=== PATIENT | female | born 1985 | race Caucasian/White ===

== ENCOUNTER 2016-10-20 14:16 | Emergency (ER) | payer OTHER ==
[2016-10-20 14:20] VITALS: BP 115/68; PULSE 80; TEMP 97.9; BMI 22.3
--- NOTE | 2016-10-20 17:08 | PDOC ---
History of Present Illness - General Chief Complaint: Cold Symptoms Stated Complaint: HEAD ACHE/COLD SYMPTOMS Time Seen by Provider: 10/20/16 16:35 History Source: Patient Exam Limitations: No Limitations - History of Present Illness Initial Comments: 10/20/16 17:10 This is a 31-year-old woman with no significant past medical history presents to the emergency room today with cough for 3 weeks and also with a headache status post striking her head on wooden steps on October 15. She states that while walking IN groceries she tripped and fell face first into stairs. She denies loss of consciousness or dizziness. Also had a dry nonproductive cough for the past 3 weeks. She denies fevers, chills, nausea, vomiting, chest pain, abdominal pain. Timing/Duration: 1 week Past History - Past Medical History Allergies/Adverse Reactions: Allergies Allergy/AdvReac Type Severity Reaction Status Date / Time piperacillin sodium AdvReac Severe Hives Verified 10/20/16 14:20 [From Zosyn] tazobactam sodium AdvReac Severe Hives Verified 10/20/16 14:20 [From Zosyn] vancomycin AdvReac Severe Hives Verified 10/20/16 14:20 Home Medications: Ambulatory Orders Azithromycin [Zithromax 250mg Tablets -] 250 mg PO DAILY #4 tablet 10/20/16 Other medical history: denies - Psycho/Social/Smoking Cessation Hx Suicidal Ideation: No Smoking Status: No Smoking History: Never smoked Number of Cigarettes Smoked Daily: 0 Information on smoking cessation initiated: No Hx Alcohol Use: No Drug/Substance Use Hx: No Substance Use Type: None Review of Systems - Review of Systems Able to Perform ROS?: Yes Is the patient limited Fijian proficient: No Constitutional: No: Symptoms Reported HEENTM: No: Symptoms Reported Respiratory: Yes: See HPI Cardiac (ROS): No: Symptoms Reported ABD/GI: No: Symptoms Reported : No: Symptoms Reported Musculoskeletal: No: Symptoms Reported Integumentary: No: Symptoms Reported Neurological: Yes: See HPI Endocrine: No: Symptoms Reported Hematologic/Lymphatic: No: Symptoms Reported *Physical Exam - Vital Signs Last Vital Signs Temp Pulse Resp BP Pulse Ox 97.9 F 80 18 115/68 100 10/20/16 14:18 10/20/16 14:18 10/20/16 14:18 10/20/16 14:18 10/20/16 14:18 - Physical Exam General Appearance: Yes: Appropriately Dressed. No: Apparent Distress HEENT: positive: EOMI, SOCORRO, Normal ENT Inspection Neck: positive: Trachea midline, Supple Respiratory/Chest: positive: Lungs Clear, Normal Breath Sounds. negative: Chest Tender, Respiratory Distress, Accessory Muscle Use Cardiovascular: positive: Regular Rhythm, Regular Rate, S1, S2. negative: Edema , JVD, Murmur Gastrointestinal/Abdominal: positive: Normal Bowel Sounds, Soft. negative: Tender, Organomegaly Musculoskeletal: positive: Normal Inspection. negative: CVA Tenderness Extremity: positive: Normal Capillary Refill, Normal Inspection, Normal Range of Motion Integumentary: positive: Normal Color, Dry, Warm Neurologic: positive: inside sales representative II-XII NML intact, Fully Oriented, Alert, Normal Mood/ Affect, Normal Response, Motor Strength 06/16 Medical Decision Making - Medical Decision Making 10/20/16 17:10 A: This is a 31-year-old woman with no significant past medical history presents to the emergency room today with cough for 3 weeks and also with a headache status post striking her head on wooden steps on October 15. She states that while walking IN groceries she tripped and fell face first into stairs. She denies loss of consciousness or dizziness. Also had a dry nonproductive cough for the past 3 weeks. She denies fevers, chills, nausea, vomiting, chest pain, abdominal pain. lungs clear to auscultation bilaterally. No wheezes rhonchi or rales. No sensory muscle use.speaking in full sentences. Hematoma noted to the hairline at the middle of the forehead. Patient denies loss of consciousness when she struck her head but has been experiencing global headaches since sustaining injury to her head. pupils equal to light and accommodation. P: CXR Azithromycin 500mg now 10/20/16 19:22 CXR as read by me- no acute pulmonary disease. 4 nodules noted. 1 unchanged from previous CXR. will discharge. Zithromax 250 daily x4 days. *DC/Admit/Observation/Transfer Diagnosis at time of Disposition: Bronchitis - Discharge Dispostion Admit: No - Prescriptions Prescriptions: Azithromycin [Zithromax 250mg Tablets -] 250 mg PO DAILY #4 tablet - Referrals Referrals: William Loza MD [Staff Physician] - - Patient Instructions Printed Discharge Instructions: DI for Acute Bronchitis Additional Instructions: You have a questionable finding on her chest x-ray that needs further evaluation. You've been given a referral to a new primary doctor please follow-up within the next 2 weeks. Take the azithromycin 1 pill every day for the next 4 days. Make sure you finish all of the azithromycin. Avoid alcohol. Keep well-hydrated. Enjoy your visit to [facility]. Return to the emergency department for fevers, chills, worsening cough, chest pain, shortness of breath, or any other concerns. Thank you for choosing us to provide your emergent health care needs today.
[2016-10-20] MEDS ORDERED: AZITHROMYCIN 500 MG TABLET PO ONE (17:46)
[2016-10-20] MEDS ORDERED: AZITHROMYCIN 250 MG TABLET ONE (17:57)
== END 2016-10-20 19:29 | disposition home or self-care (01) ==
LOC: JERFT 14:16
DX: J20.9 Acute bronchitis, unspecified (principal); G44.309 Post-traumatic headache, unspecified, not intractable; W10.8XXA Fall (on) (from) other stairs and steps, initial encounter; Y93.89 Activity, other specified; Y92.89 Other specified places as the place of occurrence of the external cause; Y99.8 Other external cause status
CPT/HCPCS: 71020-TC; 99281-25

== ENCOUNTER 2017-08-31 18:39 | Emergency (ER) | payer OTHER ==
[2017-08-31 19:52] VITALS: BP 117/71; PULSE 86; TEMP 100.2; BMI 22.3
--- NOTE | 2017-08-31 20:06 | PDOC ---
History of Present Illness - General Chief Complaint: Cold Symptoms Stated Complaint: COLD SYMPTOMS Time Seen by Provider: 08/31/17 19:46 History Source: Patient Exam Limitations: No Limitations - History of Present Illness Initial Comments: CHIEF COMPLAINT: 31 y/o febrile female c/o sore throat and body aches x 2 days. HISTORY OF PRESENT ILLNESS: THe patient has been taking nyquil and dayquil for her symptoms. She denies runny nose, vomiting, diarrhea, CP, SOB. Vital signs on arrival are notable for temp of 100.2 REVIEW OF SYSTEMS: GENERAL/CONSTITUTIONAL: + fever/chills. +body aches. No weakness. No weight change. HEAD, EYES, EARS, NOSE AND THROAT: No change in vision. No ear pain or discharge. +sore throat. CARDIOVASCULAR: No chest pain or shortness of breath. RESPIRATORY: No cough, wheezing, or hemoptysis. GASTROINTESTINAL: No abd pain, nausea, vomiting, diarrhea. GENITOURINARY: No dysuria, frequency, or change in urination. MUSCULOSKELETAL: No joint or muscle swelling or pain. No neck or back pain. SKIN: No rash or easy bruising. NEUROLOGIC: No headache, vertigo, loss of consciousness, or loss of sensation. PHYSICAL EXAM: GENERAL: The patient is awake, alert, and fully oriented, in no acute distress. SHe is non toxic but ill appearing. HEAD: Normal with no signs of trauma. NECK: Tender anterior cervical lymphadenopathy. ENT: Pupils equal, round and reactive to light, extraocular movements intact, sclera anicteric, conjunctiva clear. erythrmatous tonsils without exudate. Uvula midline. No soft/hard palate deformities. No petechia. LUNGS: Clear to auscultation bilaterally. Normal excursion. No respiratory distress or use of accessory muscles. CV: RRR, S1/S2, no MRG. Cap refill < 2 sec. ABDOMEN: Soft, non-distended, non-tender even to deep palpation, no hepatomegaly or splenomegaly, no masses. EXTREMITIES: Normal range of motion, no edema. NEUROLOGICAL: Normal speech, normal gait. CN II-XII grossly intact. SKIN: Warm, dry, normal turgor, no rashes or lesions noted. Past History - Past Medical History Allergies/Adverse Reactions: Allergies Allergy/AdvReac Type Severity Reaction Status Date / Time piperacillin sodium AdvReac Severe Hives Verified 10/20/16 14:20 [From Zosyn] tazobactam sodium AdvReac Severe Hives Verified 10/20/16 14:20 [From Zosyn] vancomycin AdvReac Severe Hives Verified 10/20/16 14:20 Home Medications: Ambulatory Orders Azithromycin [Zithromax 250mg Tablets -] 250 mg PO UTDICT #6 tab 08/31/17 COPD: No DVT: No Other medical history: Pneumonia - Surgical History Abdominal Surgery: No Appendectomy: No Cardiac Surgery: No Cholecystectomy: No Gastric Stapling: No GI Surgery: No - Suicide/Smoking/Psychosocial Hx Smoking Status: No Smoking History: Never smoked Number of Cigarettes Smoked Daily: 0 Hx Alcohol Use: No Drug/Substance Use Hx: No Substance Use Type: None *Physical Exam - Vital Signs Last Vital Signs Temp Pulse Resp BP Pulse Ox 100.2 F H 86 20 117/71 100 08/31/17 19:47 08/31/17 19:47 08/31/17 19:47 08/31/17 19:47 08/31/17 19:47 Medical Decision Making - Medical Decision Making A/P: 31 y/o female with possible strep. Plan is as follows: 1. PO tylenol 2. Rapid strep Rapid strep - positive Temp has decreased to 98.5 Patient wanted xray to r/o PNA although Lungs LTAB and 100% O2 sat. However, she decided she doesn't want to wait for xray will d/c to home with rx for zpack. Instructed her to take tylenol for fever, gargle with warm salt water andf /u wtih PCP within 1 week. INstructed her to return to the ER With any worsening or concerning symptoms The patient verbalizes understanding of all instructions, has no further questions and is awaiting discharge. *DC/Admit/Observation/Transfer Diagnosis at time of Disposition: Strep pharyngitis - Discharge Dispostion Disposition: HOME Condition at time of disposition: Good - Prescriptions Prescriptions: Azithromycin [Zithromax 250mg Tablets -] 250 mg PO UTDICT #6 tab - Referrals Referrals: William Loza MD [Primary Care Provider] - - Patient Instructions Printed Discharge Instructions: DI for Strep Throat Additional Instructions: Discharge Instructions: -You have strep throat -A prescription has been sent to your pharmacy; please take as prescribed -Gargle with warm salt water and drink plenty of fluids -Take 650mg of tylenol every 4 hours for fever. You will still get fevers for a few days -Get a new toothbrush after 3 days of antibiotics -Follow up with your doctor next week -REturn to the ER with any worsening or concerning symptoms - Post Discharge Activity Forms/Work/School Notes: Back to Work
[2017-08-31] MEDS ORDERED: ACETAMINOPHEN 325 MG TABLET (FP) PO ONE (20:17)
[2017-08-31] MEDS ORDERED: ACETAMINOPHEN 325 MG TABLET (FP) ONE (20:25)
== END 2017-08-31 23:03 | disposition home or self-care (01) ==
LOC: JERFT 18:39
DX: J02.0 Streptococcal pharyngitis (principal); B95.0 Streptococcus, group A, as the cause of diseases classified elsewhere
CPT/HCPCS: 84703; 87070; 87430; 99281-25

== ENCOUNTER 2018-04-08 07:40 | Emergency (ER) | payer OTHER ==
[2018-04-08 07:46] VITALS: BP 115/67; PULSE 76; TEMP 98.4; BMI 21.9
--- NOTE | 2018-04-08 08:18 | PDOC ---
History of Present Illness - General Chief Complaint: Cold Symptoms Stated Complaint: FEVER/CHILLS/HEADACHE Time Seen by Provider: 04/08/18 08:16 History Source: Patient Exam Limitations: No Limitations - History of Present Illness Initial Comments: 04/08/18 08:26 Onset of runny nose and cough on Sunday and woke up Sunday morning with fever , chills, body aches. Has been using [id number] medications with minimal relief Timing/Duration: reports: getting worse Severity: reports: moderate Associated Symptoms: reports: denies symptoms, chest pain/soreness, cough, earache, fever/chills, nasal congestion, nasal drainage, sore throat Past History - Past Medical History Allergies/Adverse Reactions: Allergies Allergy/AdvReac Type Severity Reaction Status Date / Time piperacillin sodium AdvReac Severe Hives Verified 10/20/16 14:20 [From Zosyn] tazobactam sodium AdvReac Severe Hives Verified 10/20/16 14:20 [From Zosyn] vancomycin AdvReac Severe Hives Verified 10/20/16 14:20 Home Medications: Ambulatory Orders Oseltamivir Phosphate [Tamiflu -] 75 mg PO BID #10 capsule 04/08/18 COPD: No DVT: No - Surgical History Abdominal Surgery: No Appendectomy: No Cardiac Surgery: No Cholecystectomy: No Gastric Stapling: No GI Surgery: No - Immunization History Immunization Up to Date: No - Suicide/Smoking/Psychosocial Hx Smoking Status: No Smoking History: Never smoked Have you smoked in the past 12 months: No Number of Cigarettes Smoked Daily: 0 Information on smoking cessation initiated: No Hx Alcohol Use: No Drug/Substance Use Hx: No Substance Use Type: None Review of Systems - Review of Systems Able to Perform ROS?: Yes Is the patient limited Faroese proficient: Yes Constitutional: Yes: Symptoms Reported, See HPI, Fever, Malaise HEENTM: Yes: Symptoms Reported Respiratory: Yes: Symptoms reported, See HPI, Cough Integumentary: Yes: Symptoms Reported, See HPI Neurological: Yes: Symptoms reported, See HPI, Headache, Numbness All Other Systems: Reviewed and Negative *Physical Exam - Vital Signs Last Vital Signs Temp Pulse Resp BP Pulse Ox 98.4 F 76 18 115/67 99 04/08/18 07:44 04/08/18 07:44 04/08/18 07:44 04/08/18 07:44 04/08/18 07:44 - Physical Exam Comments: 04/08/18 08:28 GENERAL: [ The pateint is awake, alert, and appropriately interactive.] EYES: [The pupils are equal, round, and reactive to light, with clear, conjunctiva.but glassy] NOSE: [The nose with clear drainage EARS: [The ear canals and tympanic membranes are congested but landmarks easily visualed ] THROAT: [The oropharynx is clear with erythema, no exudates. The mucous membranes are moist.] NECK: [The neck is supple with mildly tender adenopathy, no menigemous] CHEST: [The lungs are coarse but clear without crackles, or wheezes.] HEART: [Heart is regular rhythm, with normal S1 and S2, no murmurs.] ABDOMEN: [The abdomen is soft and nontender with normal bowel sounds. There is no organomegaly and no mass. There is no guarding or rebound.] EXTREMITIES: [Extremities are normal.] NEURO: [Behavior is normal for age.cranky but easily, Tone is normal.] SKIN: [Skin is unremarkable without rash or swelling. There is no bruising, and there are no other signs of injury.] General Appearance: Yes: Appropriately Dressed Moderate Sedation - Procedure Monitoring Vital Signs: Procedure Monitoring Vital Signs Temperature 98.4 F 04/08/18 07:44 Pulse Rate 76 04/08/18 07:44 Respiratory Rate 18 04/08/18 07:44 Blood Pressure 115/67 04/08/18 07:44 O2 Sat by Pulse Oximetry (%) 99 04/08/18 07:44 Progress Note - Progress Note Progress Note: Clinical evidence of influenza therefore will treat as within timeframe *DC/Admit/Observation/Transfer Diagnosis at time of Disposition: Influenzal acute upper respiratory infection - Discharge Dispostion Disposition: HOME Condition at time of disposition: Stable Decision to Admit order: No - Referrals Referrals: William Loza MD [Primary Care Provider] - - Patient Instructions Printed Discharge Instructions: DI for Viral Upper Respiratory Infection -- Adult Additional Instructions: Rest, drink lots of fluids: Teas, water, soups, Pedialyte Saltwater gargles Steamy showers/seem to face break up mucus Old-fashioned treatments help! Avoid contact with others until fevers and cough resolved as this is very contagious Lots of handwashing and good hygiene Continue [id number] medications for symptomatic relief Tylenol or Motrin for fever and pain Take all of Tamiflu as directed: 1 tab every 12 hours for 5 days Followup with private physician in one to 2 days as needed or if worsening Return to emergency department for worsened symptoms, fevers, dehydration Influenza takes between 5 and 7 days for resolution To not participate in any activity, work, or school until fevers and cough are gone for at least one day - Post Discharge Activity Forms/Work/School Notes: Back to Work
== END 2018-04-08 08:47 | disposition home or self-care (01) ==
LOC: JERFT 07:40
DX: J11.1 Influenza due to unidentified influenza virus with other respiratory manifestations (principal)
CPT/HCPCS: 99281-25

== ENCOUNTER 2018-08-04 17:02 | Emergency (ER) | payer OTHER ==
[2018-08-04 17:11] VITALS: BP 108/64; PULSE 70; TEMP 98.7; BMI 21.4
--- NOTE | 2018-08-04 17:24 | PDOC ---
History of Present Illness - General Chief Complaint: Sore Throat Stated Complaint: THROAT PROBLEM Time Seen by Provider: 08/04/18 17:13 History Source: Patient Exam Limitations: No Limitations - History of Present Illness Initial Comments: 08/04/18 17:26 patient states has had a runny nose, posterior sinus drainage, and some mild sore throat pain on and off for the past week. Denies fevers or chills, has not taken temperature. His ocoekcfo-hcr-iycnvls and homeopathic treatments with minimal resolved. Timing/Duration: unsure Severity: mild Associated Symptoms: reports: denies symptoms Past History - Travel Traveled outside of the country in the last 30 days: No Close contact w/someone who was outside of country & ill: No - Past Medical History Allergies/Adverse Reactions: Allergies Allergy/AdvReac Type Severity Reaction Status Date / Time piperacillin sodium AdvReac Severe Hives Verified 08/04/18 17:11 [From Zosyn] tazobactam sodium AdvReac Severe Hives Verified 08/04/18 17:11 [From Zosyn] vancomycin AdvReac Severe Hives Verified 08/04/18 17:11 Home Medications: Ambulatory Orders Azithromycin [Zithromax -] 250 mg PO UTDICT #6 tab 08/04/18 Benzonatate [Tessalon Pearls -] 100 mg PO TID #21 capsule 08/04/18 COPD: No DVT: No - Surgical History Abdominal Surgery: No Appendectomy: No Cardiac Surgery: No Cholecystectomy: No Gastric Stapling: No GI Surgery: No - Immunization History Immunization Up to Date: No - Suicide/Smoking/Psychosocial Hx Smoking Status: No Smoking History: Never smoked Have you smoked in the past 12 months: No Number of Cigarettes Smoked Daily: 0 Hx Alcohol Use: No Drug/Substance Use Hx: No Substance Use Type: None Review of Systems - Review of Systems Able to Perform ROS?: Yes Is the patient limited Gambian proficient: Yes Constitutional: Yes: Symptoms Reported, See HPI, Chills, Loss of Appetite, Malaise HEENTM: Yes: Nose Pain, Nose Congestion, Throat Pain, Throat Swelling Respiratory: Yes: Symptoms reported, See HPI. No: Cough Cardiac (ROS): No: Symptoms Reported ABD/GI: No: Symptoms Reported Neurological: Yes: See HPI, Headache. No: Symptoms reported All Other Systems: Reviewed and Negative *Physical Exam - Vital Signs Last Vital Signs Temp Pulse Resp BP Pulse Ox 98.7 F 70 18 108/64 100 08/04/18 17:08 08/04/18 17:08 08/04/18 17:08 08/04/18 17:08 08/04/18 17:08 - Physical Exam General Appearance: Yes: Nourished, Appropriately Dressed HEENT: positive: SOCORRO, TMs Normal (congested but landmarks easily visualized), Pharynx Normal (no redness, swelling or exudate however noted posterior sinus drainage thick clear white), Rhinorrhea, Sinus Tenderness Neck: positive: Tender, Supple, Lymphadenopathy (R), Lymphadenopathy (L) Respiratory/Chest: positive: Lungs Clear, Normal Breath Sounds. 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 Discussed with patient need to continue chch-uko-odknixl medications and conservative measures as antibiotics would not be indicated and provided prescription for Tessalon Perles when necessary for persistent cough. Also given a watch and wait azithromycin as patient has been ill for over a week on and off and has multiple exposures to people with bronchitis and some strep with coworkers. Understands will not initiate unless fevers go greater than 101.5, phlegm production, or worsen nasal drainage. *DC/Admit/Observation/Transfer Diagnosis at time of Disposition: Laryngitis - Discharge Dispostion Disposition: HOME Condition at time of disposition: Stable Decision to Admit order: No - Referrals - Patient Instructions Printed Discharge Instructions: DI for Laryngitis Additional Instructions: Rest, drink lots of fluids: Teas, water, soups, Pedialyte Saltwater gargles Steamy showers/seem to face break up mucus Avoid contact with others until fevers and cough resolved Lots of handwashing and good hygiene Continue [id number] medications for symptomatic relief Tylenol or Motrin for fever and pain Followup with private physician in one to 2 days as needed Return to emergency department for worsened symptoms, fevers, dehydration - Post Discharge Activity Forms/Work/School Notes: Back to Work
== END 2018-08-04 17:32 | disposition home or self-care (01) ==
LOC: JERFT 17:02
DX: J06.9 Acute upper respiratory infection, unspecified (principal); J04.0 Acute laryngitis
CPT/HCPCS: 99282-25

== ENCOUNTER 2018-12-03 22:00 | Emergency (ER) | payer OTHER ==
[2018-12-03 22:27] VITALS: BP 124/78; PULSE 76; TEMP 98.2; BMI 21.4
== END 2018-12-03 23:24 | disposition left against medical advice (07) ==
LOC: JER 22:00
DX: Z53.21 Procedure and treatment not carried out due to patient leaving prior to being seen by health care provider (principal)
CPT/HCPCS: 99281-25

== ENCOUNTER 2019-04-15 14:45 | Emergency (ER) | payer OTHER ==
[2019-04-15] MEDS ORDERED: MAG HYDROX/AL HYDROX/SIMETH 30 ML UNIT-DOSE CUP PO ONE (14:50)
[2019-04-15] MEDS ORDERED: ONDANSETRON *ODT* 4 MG TABLET SL ONE ×2 (14:50→16:14)
[2019-04-15] MEDS ORDERED: FAMOTIDINE 20 MG TABLET PO ONE (14:50)
--- NOTE | 2019-04-15 14:50 | PDOC ---
Rapid Medical Evaluation Time Seen by Provider: 04/15/19 14:48 Medical Evaluation: Allergies Allergy/AdvReac Type Severity Reaction Status Date / Time piperacillin sodium AdvReac Severe Hives Verified 12/03/18 22:27 [From Zosyn] tazobactam sodium AdvReac Severe Hives Verified 12/03/18 22:27 [From Zosyn] vancomycin AdvReac Severe Hives Verified 12/03/18 22:27 04/15/19 14:48 CC: Nausea, anorexia and "acid reflux" PE: No focal findings. Orders: maalox, pepcid, zofran, UPT Patient will proceed to ED for further evaluation. Discharge Disposition - Diagnosis Nausea - Referrals - Patient Instructions - Post Discharge Activity
[2019-04-15 14:51] VITALS: BP 119/85; PULSE 76; TEMP 98.2; BMI 21.9
[2019-04-15] MEDS ORDERED: FAMOTIDINE 20 MG TABLET ONE (15:15)
[2019-04-15] MEDS ORDERED: MAG HYDROX/AL HYDROX/SIMETH 30 ML UNIT-DOSE CUP ONE (15:15)
[2019-04-15] MEDS ORDERED: ONDANSETRON *ODT* 4 MG TABLET ONE ×2 (15:15→16:15)
[2019-04-15 15:43] LABS: EPI CELLS 2.5 /HPF (0-5/HPF); HYALINE CASTS 4 /lpf (0-8); URINE APPEARANCE CLEAR; URINE BACTERIA 113.4 /hpf (NEGATIVE); URINE BILIRUBIN NEGATIVE (NEGATIVE); URINE COLOR YELLOW; URINE GLUCOSE (UA) NEGATIVE (NEGATIVE); URINE KETONE TRACE (NEGATIVE); URINE LEUK ESTERASE NEGATIVE (NEGATIVE); URINE NITRITE NEGATIVE (NEGATIVE); URINE PROTEIN NEGATIVE (NEGATIVE); URINE RBC 5 /hpf (0-4); URINE UROBILINOGEN 0.2 mg/dL (0.2-1.0); URINE WBC 2 /hpf (0-5)
--- NOTE | 2019-04-15 16:10 | PDOC ---
History of Present Illness - General Chief Complaint: Nausea Stated Complaint: HEADACHE/NAUSEA Time Seen by Provider: 04/15/19 14:48 - History of Present Illness Initial Comments: 04/15/19 16:08 33-year-old female presents for evaluation of nausea x1 day Past History - Past Medical History Allergies/Adverse Reactions: Allergies Allergy/AdvReac Type Severity Reaction Status Date / Time piperacillin sodium AdvReac Severe Hives Verified 04/15/19 14:51 [From Zosyn] tazobactam sodium AdvReac Severe Hives Verified 04/15/19 14:51 [From Zosyn] vancomycin AdvReac Severe Hives Verified 04/15/19 14:51 Home Medications: Ambulatory Orders Azithromycin [Zithromax -] 250 mg PO UTDICT #6 tab 08/04/18 Benzonatate [Tessalon Pearls -] 100 mg PO TID #21 capsule 08/04/18 Ondansetron [Zofran *Odt*] 4 mg SL BID #14 od.tablet 04/15/19 COPD: No DVT: No - Surgical History Abdominal Surgery: No Appendectomy: No Cardiac Surgery: No Cholecystectomy: No Gastric Stapling: No GI Surgery: No - Immunization History Immunization Up to Date: No - Psycho Social/Smoking Cessation Hx Smoking Status: No Smoking History: Never smoked Have you smoked in the past 12 months: No Number of Cigarettes Smoked Daily: 0 Hx Alcohol Use: No Drug/Substance Use Hx: No Substance Use Type: None Review of Systems - Review of Systems Constitutional: No: Fever ABD/GI: Yes: Nausea. No: Blood Streaked Bowels, Constipated, Diarrhea, Vomiting *Physical Exam - Vital Signs Last Vital Signs Temp Pulse Resp BP Pulse Ox 98.2 F 76 18 119/85 99 04/15/19 14:47 04/15/19 14:47 04/15/19 14:47 04/15/19 14:47 04/15/19 14:47 - Physical Exam 04/15/19 16:09 GENERAL: The patient is awake, alert, and fully oriented, in no acute distress. HEAD: Normal with no signs of trauma. EYES: sclera anicteric, conjunctiva clear. ENT: Ears normal tympanic membranes normal oropharynx clear uvula midline NECK: Normal range of motion LUNGS: Breath sounds equal, clear to auscultation bilaterally. No wheezes, and no crackles. HEART: S1 and S2 without murmur, rub or gallop. ABDOMEN: Soft, nontender, normoactive bowel sounds. No guarding, no rebound. No masses. EXTREMITIES: Normal range of motion, no edema. No clubbing or cyanosis. No cords, erythema, or tenderness. NEUROLOGICAL: Cranial nerves II through XII grossly intact. PSYCH: Normal mood, normal affect. SKIN: Warm, Dry, normal turgor, no rashes or lesions noted. ED Treatment Course - ADDITIONAL ORDERS Additional order review: Laboratory Results 04/15/19 04/15/19 15:00 15:00 Urine Color Yellow Urine Appearance Clear Urine pH 6.0 Ur Specific [place] 1.024 Urine Protein Negative Urine Glucose (UA) Negative Urine Ketones Trace H Urine Blood 2+ H Urine Nitrite Negative Urine Bilirubin Negative Urine Urobilinogen 0.2 Ur Leukocyte Esterase Negative Urine WBC (Auto) 2 Urine RBC (Auto) 5 Urine Casts (Auto) 4 U Epithel Cells (Auto) 2.5 Urine Bacteria (Auto) 113.4 Urine HCG, Qual Negative - Medications Given in the ED: ED Medications Discontinued Medications Generic Name Dose Route Start Last Admin Trade Name Freq PRN Reason Stop Dose Admin Al Hydroxide/Mg Hydroxide 30 ml 04/15/19 14:50 04/15/19 15:17 Mylanta Oral Suspension - PO 04/15/19 14:51 30 ml ONCE ONE Administration Famotidine 20 mg 04/15/19 14:50 04/15/19 15:17 Pepcid - PO 04/15/19 14:51 20 mg ONCE ONE Administration Ondansetron HCl 4 mg 04/15/19 14:50 04/15/19 15:18 Zofran Odt - SL 04/15/19 14:51 4 mg ONCE ONE Administration Medical Decision Making - Medical Decision Making 04/15/19 16:09 May be the start of a viral gastroenteritis. Urine questionable for UTI, culture sent. Patient is menstruating at this time, will treat for nausea with Zofran and PCP follow-up I have reviewed the pathophysiology with the patient. They are in agreement with the treatment plan all questions were answered to their satisfaction. Understanding for follow-up without fail was also conveyed to the patient. Again they are in agreement. Discharge - Discharge Information Problems reviewed: Yes Clinical Impression/Diagnosis: Nausea Condition: Stable Disposition: HOME - Admission No - Follow up/Referral Referrals: William Loza MD [Primary Care Provider] - - Patient Discharge Instructions Additional Instructions: Return to the emergency room for worsening symptoms and without fail follow-up with your primary care physician in 1 to 2 days for further evaluation and treatment options. Please use the Zofran as directed for nausea. - Post Discharge Activity
== END 2019-04-15 16:18 | disposition home or self-care (01) ==
LOC: JERFT 14:45
DX: R11.0 Nausea (principal); Z88.0 Allergy status to penicillin; Z88.1 Allergy status to other antibiotic agents
CPT/HCPCS: 81003; 84703; 99283-25; Q0162

== ENCOUNTER 2019-04-20 10:51 | Emergency (ER) | payer OTHER ==
[2019-04-20 10:55] VITALS: BMI 21.9
--- NOTE | 2019-04-20 11:15 | PDOC ---
History of Present Illness - General Chief Complaint: Nausea Stated Complaint: HEADACHE/NAUSEOUS Time Seen by Provider: 04/20/19 11:15 History Source: Patient Exam Limitations: No Limitations - History of Present Illness Initial Comments: 04/20/19 11:15 Kassie Baires is an otherwise healthy 33F presenting with 5 days of nausea, CHAU, and lower abdominal/pelvic discomfort. Patient was at home resting when she started having nausea and CHAU. CHAU intermittent and lasts ~20 mins, denies vision changes or head injury, takes Motrin and CHAU pain decreases. Intermittent dizziness. Nausea persistent independent of CHAU. Presented to [facility] ED for evaluation 4 days ago for this nausea in the setting of her menses, negative, sent home with SL Chau. Two days ago having discomfort in her lower abdomen, mostly in the left side of her pelvis, still having the nausea and anorexia without any vomiting or diarrhea. Not tolerating the Zofran, says she had to spit it out after a few seconds. Presents to ED today because she cannot stand being nauseated any more and is worried about what is wrong with her. Denies fever, chills, chest pain, SOB. Denies urinary symptoms. 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 Last sexual activity with one male partner 2 weeks ago, no condoms used, no contraception used by patient, no history of any STIs. Denies any other PMH or medications. Denies tobacco/drugs/alcohol use. Past History - Past Medical History Allergies/Adverse Reactions: Allergies Allergy/AdvReac Type Severity Reaction Status Date / Time piperacillin sodium AdvReac Severe Hives Verified 04/20/19 10:55 [From Zosyn] tazobactam sodium AdvReac Severe Hives Verified 04/20/19 10:55 [From Zosyn] vancomycin AdvReac Severe Hives Verified 04/20/19 10:55 metoclopramide [From Reglan] AdvReac Intermediate dystonic Verified 04/20/19 14:12 reaction Home Medications: Ambulatory Orders Doxycycline Hyclate 100 mg PO BID 10 Days #20 tablet 04/20/19 COPD: No DVT: No - Surgical History Abdominal Surgery: No Appendectomy: No Cardiac Surgery: No Cholecystectomy: No Gastric Stapling: No GI Surgery: No - Immunization History Immunization Up to Date: No - Psycho Social/Smoking Cessation Hx Smoking Status: No Smoking History: Never smoked Have you smoked in the past 12 months: No Number of Cigarettes Smoked Daily: 0 Hx Alcohol Use: No Drug/Substance Use Hx: No Substance Use Type: None Review of Systems - Review of Systems Able to Perform ROS?: Yes Constitutional: No: Chills, Fever HEENTM: No: Eye Pain, Blurred Vision, Nose Pain, Throat Pain, Mouth Swelling Respiratory: No: Cough, Shortness of Breath, Stridor, Wheezing Cardiac (ROS): Yes: Lightheadedness. No: Chest Pain, Edema, Irregular Heart Rate, Palpitations, Syncope, Chest Tightness ABD/GI: Yes: Constipated, Nausea, Poor Appetite, Poor Fluid Intake, Abdominal cramping. No: Diarrhea, Vomiting : No: Burning, Dysuria, Discharge, Frequency, Flank Pain, Hematuria, Incontinence Musculoskeletal: No: Symptoms Reported Integumentary: No: Symptoms Reported Neurological: Yes: Headache, Dizziness. No: Numbness, Paresthesia, Tingling, Unsteady Gait Endocrine: No: Symptoms Reported Hematologic/Lymphatic: No: Symptoms Reported All Other Systems: Reviewed and Negative *Physical Exam - Vital Signs Last Vital Signs Temp Pulse Resp BP Pulse Ox 98.2 F 80 18 119/71 100 04/20/19 10:53 04/20/19 10:53 04/20/19 10:53 04/20/19 10:53 04/20/19 10:53 - Physical Exam General Appearance: Yes: Nourished, Appropriately Dressed. No: Apparent Distress HEENT: positive: EOMI, [place], Normal Voice, Symmetrical, Pharynx Normal, Hearing Grossly Normal. negative: Scleral Icterus (R), Scleral Icterus (L), Pharyngeal Erythema, Tonsillar Exudate, Tonsillar Erythema Neck: positive: Trachea midline, Normal Thyroid, Supple. negative: Tender, Rigid, Lymphadenopathy (R), Lymphadenopathy (L), Tender lateral, Tender midline Respiratory/Chest: positive: Lungs Clear, Normal Breath Sounds. negative: Chest Tender, Respiratory Distress, Accessory Muscle Use, Crackles, Rales, Rhonchi, Wheezing Cardiovascular: positive: Regular Rhythm, Regular Rate. negative: Tachycardia Gastrointestinal/Abdominal: positive: Normal Bowel Sounds, Tender (L>R lower abdomen), Flat, Soft. negative: Organomegaly, Pulsatile Mass, Guarding, Rebound, Hernia Musculoskeletal: positive: Normal Inspection. negative: CVA Tenderness, Decreased Range of Motion, Vertebral Tenderness Extremity: positive: Normal Capillary Refill, Normal Inspection, Normal Range of Motion. negative: Tender, Pelvis Stable, Pedal Edema, Swelling, Calf Tenderness Integumentary: positive: Normal Color, Dry, Warm Neurologic: positive: lead c developer II-XII NML intact, Fully Oriented, Alert, Normal Mood/Affect, Normal Response, Motor Strength 5/5, Other (gait normal). negative: Numbness ED Treatment Course - LABORATORY CBC & Chemistry Diagram: 04/20/19 12:20 04/20/19 12:20 Medical Decision Making - Medical Decision Making 04/20/19 12:34 Presents with CHAU, nausea without vomiting or diarrhea, poor appetite, and non- specific abdominal discomfort. VS stable, physical exam shows generalized abdominal pain with L>R lower tenderness, neuro exam grossly normal. Presentation concerning for multiple possible pathologies including /ectopic, oavarian torsion or cyst rupture, cervicitis, PID, appendicitis, UTI/pyelo. Will evaluate broadly for all of these pathologies with labs and urinalysis, will get US at first and may need CTAP for evaluate for appendicitis. - CMP/CBC for eval lytes/infection - lipase for eval pancreatitis - serum - UA/UC for eval UTI - TVUS for eval ovarian pathology - CTAP for evaluation of appendicitis - 1L NS, Ofirmev, and 10mg Reglan for symptomatic relief. Will perform pelvic exam for further clarification of adenexal pathology if present. 04/20/19 14:34 Patient found to have dystonic reaction to Reglan despite slow administration. In a panic, stated that she suddenly felt a dry mouth. Given 50mg Benadryl and recovered to normal. 04/20/19 16:08 TVUS normal. CTAP no appendicitis, evidence of heterogenous appearing liver, recommends liver MRI outpatient. Pelvic exam shows CMT and adnexal tenderness bilaterally, concerning for PID. Patient has Zosyn allergy with facial swelling and redness. Ordering 240mg IM gentamycin and 2g azithromycin for treatment. Otherwise stable for discharge home with GI f/u and PMD f/u tomorrow as scheduled. 04/20/19 16:55 Informed by pharmacy that IM gentamycin unavailable. Switching to 100mg doxycycline BID for 10 days. Scripts sent to pharmacy. Discharged. Discharge - Discharge Information Problems reviewed: Yes Clinical Impression/Diagnosis: Nausea Headache Qualifiers: Headache type: unspecified Headache chronicity pattern: acute headache Intractability: not intractable Qualified Code(s): R51 - Headache Abdominal pain Qualifiers: Abdominal location: generalized Qualified Code(s): R10.84 - Generalized abdomi nal pain Condition: Stable Disposition: HOME - Additional Discharge Information Prescriptions: Doxycycline Hyclate 100 mg PO BID 10 Days #20 tablet - Follow up/Referral Referrals: William Loza MD [Primary Care Provider] - Beverly Chicas MD [Staff Physician] - Dell Cobb MD [Staff Physician] - - Patient Discharge Instructions Additional Instructions: Today you were evaluated for nausea and abdominal pain. Your blood works are totally normal. Your ultrasound is also normal. Your CT scan shows that you are constipated, and also that you have some sort of issue with your liver. As we discussed, this is not something that needs treatment emergently, but you should follow-up with a specialist called a manager division for further care, and referrals have been given. Our radiologist recommends an MRI of your liver to evaluate it further. At home, drink lots of fluids and you can continue to take Motrin for your headaches. We have discovered a new adverse reaction to a medication called Reglan (metaclopramide), please do not take this in the future. Please follow-up with Dr. Loza tomorrow. If you experience worsening nausea, vomiting, fever, abdominal pain, or any other new or concerning symptoms, please return to the emergency room. - Post Discharge Activity Work/Back to School Note: Back to Work
[2019-04-20] MEDS ORDERED: SODIUM CHLORIDE 0.9% 500 ML INFUS.BAG IV ONE (11:56)
[2019-04-20] MEDS ORDERED: METOCLOPRAMIDE HCL INJECTION 10 MG/2 ML VIAL IVPB ONE (11:56)
[2019-04-20] MEDS ORDERED: ACETAMINOPHEN 1000 MG/100 ML VIAL (NON FORMULARY) IVPB ONE (11:56)
[2019-04-20] MEDS ORDERED: ACETAMINOPHEN INJECTION 100 ML IVPB ONE (12:18)
[2019-04-20] MEDS ORDERED: METOCLOPRAMIDE HCL INJECTION 10 MG/2 ML VIAL ONE (12:18)
--- NOTE | 2019-04-20 12:34 | PDOC ---
Attending Attestation - Resident Resident Name: Ky Friedman - ED Attending Attestation I have performed the following: I have examined & evaluated the patient, The case was reviewed & discussed with the resident, I agree w/resident's findings & plan - HPI HPI: 04/20/19 12:29 Healthy 33-year-old female with no significant past medical or surgical history presents for persistent nausea with intermittent pelvic/abdominal cramping. Patient was initially seen here 4 days ago for nausea while menstruating, urinalysis and urine were negative and she was discharged home. 2 days ago, began developing some vibratory sensation in her left pelvis without much pain, but with persistent nausea and anorexia without vomiting or diarrhea, slight constipation for 2 days now. No associated urinary complaints, otherwise normal menses, no vaginal discharge or odor. Presents today secondary to persistent/worsening nausea and ongoing pelvic discomfort. Sexually active with one partner, does not use condoms. No history of ovarian cysts or uterine fibroids, no history of STI. - Physicial Exam PE: 04/20/19 12:32 Vital signs stable, afebrile, urine pending Well-appearing seated comfortably in stretcher No jaundice or pallor, dry mucosa Heart is regular, lungs are clear Abdomen is soft/nondistended. Pelvic/suprapubic discomfort to palpation possibly worse in the left pelvis, no guarding or rebound, no CVA tenderness Pelvic per resident - Medical Decision Making 04/20/19 12:32 33-year-old female with persistent nausea for several days and intermittent, vague pelvic complaints following menses. Question RN AMBULATORY versus versus GI etiology, no peritoneal findings on examination. Question UTI versus RN AMBULATORY (cyst versus PID, rule out ), rule out GI etiology such as colitis or enteritis. Labs, urinalysis IV fluids, pain control, nausea control Transvaginal ultrasound, may require CT if ultrasound and work-up show no etiology Reassess 04/20/19 15:32 labs, ua, tvus normal ctap with abnormal heterogeneity of liver, LFTs normal. No RUQ ttp, though nausea could be explained by this finding. no meds/travel/intox to suggest liver disease, no known history. pelvic and cultures, empiric tx for PID, GI referral for recommended outpt MRI. pt updated, understands return criteria
[2019-04-20 12:46] LABS: BASO % 0.5 % (0-2.0); EOS % 0.9 % (0-4.5); HEMATOCRIT 34.6 % (32.4-45.2); HEMOGLOBIN 11.7 GM/dL (10.7-15.3); LYMPH % 25.6 % (8-40); MCHC 33.7 g/dl (32.0-36.0); MEAN PLT VOLUME 7.6 fl (7.5-11.1); PLATELET COUNT 257 K/MM3 (134-434); RDW 13.9 % (11.6-15.6); WHITE BLOOD COUNT 6.7 K/mm3 (4.0-10.0)
[2019-04-20 13:04] LABS: BILIRUBIN,TOTAL 0.4 mg/dL (0.2-1); CALCIUM 8.8 mg/dL (8.5-10.1); CREATININE 0.9 mg/dL (0.55-1.3); INR 1.06 (0.83-1.09); POTASSIUM 3.9 mmol/L (3.5-5.1); PROTHROMBIN TIME (PATIENT) 12.5 SEC (9.7-13.0); TOT PROT 7.2 g/dl (6.4-8.2)
[2019-04-20 13:07] LABS: ACTIVATED PTT 33.6 SECONDS (25.2-36.5)
[2019-04-20 13:09] LABS: PH,URINE 6.5 (5.0-8.0); URINE APPEARANCE CLEAR; URINE BILIRUBIN NEGATIVE (NEGATIVE); URINE COLOR YELLOW; URINE GLUCOSE (UA) NEGATIVE (NEGATIVE); URINE KETONE NEGATIVE (NEGATIVE); URINE LEUK ESTERASE NEGATIVE (NEGATIVE); URINE NITRITE NEGATIVE (NEGATIVE); URINE PROTEIN NEGATIVE (NEGATIVE); URINE UROBILINOGEN 0.2 mg/dL (0.2-1.0)
[2019-04-20] MEDS ORDERED: MAGNESIUM CITRATE 300 ML BOTTLE PO ONE (15:46)
[2019-04-20] MEDS ORDERED: AZITHROMYCIN 500 MG TABLET PO ONE ×2 (16:04→16:07)
[2019-04-20] MEDS ORDERED: GENTAMICIN INJECTION 240 MG in DEXTROSE 5%-WATER - 250 ML IM SCH (16:15)
[2019-04-20] MEDS ORDERED: AZITHROMYCIN 250 MG TABLET ONE (16:25)
[2019-04-20] MEDS ORDERED: MAGNESIUM CITRATE 300 ML BOTTLE ONE (16:25)
[2019-04-20] MEDS ORDERED: DOXYCYCLINE HYCLATE 100 MG CAPSULE PO ONE (16:27)
[2019-04-20 16:55] VITALS: BP 124/78; PULSE 72; TEMP 98.6
== END 2019-04-20 16:21 | disposition home or self-care (01) ==
LOC: JER 10:51
PROC: 3E0337Z Introduction of Electrolytic and Water Balance Substance into Peripheral Vein, Percutaneous Approach (ICD-10-PCS; principal; 2019-04-20)
PROC: 3E033NZ Introduction of Analgesics, Hypnotics, Sedatives into Peripheral Vein, Percutaneous Approach (ICD-10-PCS; 2019-04-20)
PROC: 3E033GC Introduction of Other Therapeutic Substance into Peripheral Vein, Percutaneous Approach (ICD-10-PCS; 2019-04-20)
PROC: 3E033NZ Introduction of Analgesics, Hypnotics, Sedatives into Peripheral Vein, Percutaneous Approach (ICD-10-PCS; 2019-04-20)
PROC: 3E0337Z Introduction of Electrolytic and Water Balance Substance into Peripheral Vein, Percutaneous Approach (ICD-10-PCS; 2019-04-20)
DX: R11.0 Nausea (principal); R51 Headache; R10.84 Generalized abdominal pain; Z88.8 Allergy status to other drugs, medicaments and biological substances
CPT/HCPCS: 36415; 74177-TC; 76830-TC; 80053; 81003; 83690; 84703; 85025; 85610; 85730; 87086; 87491; 87591; 96374; 96375; 99285-25; J0131; Q9967

== ENCOUNTER 2019-04-24 14:09 | Emergency (ER) | payer OTHER ==
[2019-04-24 14:18] VITALS: BP 139/64; PULSE 69; TEMP 98.6; BMI 21.9
--- NOTE | 2019-04-24 14:22 | PDOC ---
Rapid Medical Evaluation Chief Complaint: Pain Time Seen by Provider: 04/24/19 14:13 Medical Evaluation: Allergies Allergy/AdvReac Type Severity Reaction Status Date / Time piperacillin sodium AdvReac Severe Hives Verified 04/24/19 14:17 [From Zosyn] tazobactam sodium AdvReac Severe Hives Verified 04/24/19 14:17 [From Zosyn] vancomycin AdvReac Severe Hives Verified 04/24/19 14:17 metoclopramide [From Reglan] AdvReac Intermediate dystonic Verified 04/24/19 14:17 reaction Vital Signs Temp Pulse Resp BP Pulse Ox 98.6 F 69 19 139/64 100 04/24/19 14:13 04/24/19 14:13 04/24/19 14:13 04/24/19 14:13 04/24/19 14:13 04/24/19 14:18 Pt c/o: left flank/llq pain x 10 days Pt on brief exam: llq tenderness pt ordered for: ua, labs pt to proceed to the ED Discharge Disposition - Diagnosis Abdominal pain - Referrals - Patient Instructions - Post Discharge Activity
[2019-04-24 15:41] LABS: BASO % 0.5 % (0-2.0); EOS % 0.6 % (0-4.5); HEMATOCRIT 35.5 % (32.4-45.2); HEMOGLOBIN 12.1 GM/dL (10.7-15.3); LYMPH % 25.3 % (8-40); MCH 30.1 pg (25.7-33.7); MEAN CELL VOLUME 88.7 fl (80-96); MEAN PLT VOLUME 7.5 fl (7.5-11.1); MONO % 9.3 % (3.8-10.2); NEUT % 64.3 % (42.8-82.8); PLATELET COUNT 285 K/MM3 (134-434); RBC 4.01 M/mm3 (3.60-5.2); RDW 13.8 % (11.6-15.6); WHITE BLOOD COUNT 8.1 K/mm3 (4.0-10.0)
[2019-04-24 15:54] LABS: PH,URINE 8.5 (5.0-8.0); URINE APPEARANCE CLEAR; URINE BILIRUBIN NEGATIVE (NEGATIVE); URINE COLOR YELLOW; URINE GLUCOSE (UA) NEGATIVE (NEGATIVE); URINE KETONE NEGATIVE (NEGATIVE); URINE LEUK ESTERASE NEGATIVE (NEGATIVE); URINE NITRITE NEGATIVE (NEGATIVE); URINE PROTEIN NEGATIVE (NEGATIVE); URINE UROBILINOGEN 0.2 mg/dL (0.2-1.0)
--- NOTE | 2019-04-24 15:55 | PDOC ---
History of Present Illness - General Chief Complaint: Pain Stated Complaint: BACK PAIN Time Seen by Provider: 04/24/19 14:13 History Source: Patient - History of Present Illness Initial Comments: 04/24/19 20:03 Chief complaint: Back pain and left flank pain Patient 33-year-old female with no specific medical problems who came to the ER multiple times this month with complaints of abdominal pain. She had labs, ultrasound of the pelvis, CT scan without any acute findings. Patient was never looking for pain medicine. She states that she is on an antibiotic and a stomach medicine, she does not remember the names but they are not working and she stopped taking them but that is not why she is here today. She has an appoint with a open hearth worker on Sunday. She was supposed to go for an outpatient ultrasound of the abdomen tomorrow but came here because she is having this left back and flank pain. No fever, no vomiting. Does have some nausea but feels that is more related to her stomach problem. Patient is ambulatory. GENERAL/CONSTITUTIONAL: No fever, weakness. dizziness HEAD, EYES, EARS, NOSE AND THROAT: No change in vision. No ear pain or discharge. No sore throat. CARDIOVASCULAR: No chest pain RESPIRATORY: No shortness of breath or cough GASTROINTESTINAL: No pain, nausea, vomiting, diarrhea or constipation GENITOURINARY: No dysuria MUSCULOSKELETAL: No neck, +back pain SKIN: No rash NEUROLOGIC: No headache, vertigo, loss of consciousness, or loss of sensation. GENERAL: The patient is awake, alert, and fully oriented, in no acute distress. HEAD: Normal with no signs of trauma. EYES: Pupils equal, round and reactive to light, sclera anicteric, conjunctiva clear. ENT: pharynx: no erythema, no exudate, uvula midline NECK: supple CHEST: clear, nontender, rr ABD: soft, left lower abdominal tenderness with minimal guarding BACK: + Left flank tenderness, no signs of injury EXTREMITIES: Normal range of motion, no edema. NEUROLOGICAL: Normal speech, normal gait. Cranial nerves II through XII grossly intact, no gross focal abnormalities SKIN: Warm, Dry Past History - Past Medical History Allergies/Adverse Reactions: Allergies Allergy/AdvReac Type Severity Reaction Status Date / Time piperacillin sodium AdvReac Severe Hives Verified 04/24/19 14:17 [From Zosyn] tazobactam sodium AdvReac Severe Hives Verified 04/24/19 14:17 [From Zosyn] vancomycin AdvReac Severe Hives Verified 04/24/19 14:17 metoclopramide [From Reglan] AdvReac Intermediate dystonic Verified 04/24/19 14: 17 reaction Home Medications: Ambulatory Orders NK [No Known Home Medication] 04/24/19 COPD: No DVT: No - Surgical History Abdominal Surgery: No Appendectomy: No Cardiac Surgery: No Cholecystectomy: No Gastric Stapling: No GI Surgery: No - Immunization History Immunization Up to Date: No - Psycho Social/Smoking Cessation Hx Smoking Status: No Smoking History: Never smoked Have you smoked in the past 12 months: No Number of Cigarettes Smoked Daily: 0 Information on smoking cessation initiated: No Hx Alcohol Use: No Drug/Substance Use Hx: No Substance Use Type: None *Physical Exam - Vital Signs Last Vital Signs Temp Pulse Resp BP Pulse Ox 98.6 F 69 19 139/64 100 04/24/19 14:13 04/24/19 14:13 04/24/19 14:13 04/24/19 14:13 04/24/19 14:13 ED Treatment Course - LABORATORY CBC & Chemistry Diagram: 04/24/19 15:25 04/24/19 15:25 - ADDITIONAL ORDERS Additional order review: Laboratory Results 04/24/19 15:40 Urine Color Yellow Urine Appearance Clear Urine pH 8.5 H D Ur Specific [place] 1.006 L Urine Protein Negative Urine Glucose (UA) Negative Urine Ketones Negative Urine Blood Negative Urine Nitrite Negative Urine Bilirubin Negative Urine Urobilinogen 0.2 Ur Leukocyte Esterase Negative 04/24/19 15:25 RBC 4.01 MCV 88.7 MCHC 34.0 RDW 13.8 MPV 7.5 Neutrophils % 64.3 Lymphocytes % 25.3 Monocytes % 9.3 Eosinophils % 0.6 Basophils % 0.5 Medical Decision Making - Medical Decision Making 04/24/19 18:24 Patient 33-year-old female who is been worked up in the ER several times this month for abdominal pain now with left lower quadrant and flank pain. Patient had labs and CT and urine that showed nothing acute prior. Patient has had a problem with constipation. She has an appointment with a open hearth worker on Sunday. Patient will get labs, urine as she said her urine is different color, will check for blood and get the abdominal ultrasound she is going to get tomorrow plus a pelvic ultrasound just to check her ovaries and make sure there were no signs of torsion. Ultrasound shows no acute pathology on the left side, unable to see right ovary but there is no pain over there. Abdominal ultrasound is negative, labs are negative. Patient understands she will need to follow-up with the doctors on an outpatient basis to get better diagnosis for her pains that she has been having Discussed issues, findings, results, applicable medications and treatments and follow-up. All these were understood and all questions were answered Discharge - Discharge Information Problems reviewed: Yes Clinical Impression/Diagnosis: Abdominal pain Qualifiers: Abdominal location: left lower quadrant Qualified Code(s): R10.32 - Left lower quadrant pain Condition: Stable Disposition: HOME - Admission No - Follow up/Referral Referrals: William Loza MD [Primary Care Provider] - - Patient Discharge Instructions Additional Instructions: It is very important for you to follow-up with the open hearth worker on Sunday as scheduled. Is not clear what is causing your symptoms. Turn to the ER if fever, vomiting or feeling very sick. For now you can take Tylenol for your discomfort as Motrin may upset your stomach more - Post Discharge Activity Work/Back to School Note: Back to Work
[2019-04-24] MEDS ORDERED: FAMOTIDINE 20 MG TABLET PO ONE (16:01)
[2019-04-24] MEDS ORDERED: ONDANSETRON 4 MG/2 ML VIAL IVPUSH ONE (16:01)
[2019-04-24] MEDS ORDERED: ONDANSETRON 4 MG/2 ML VIAL ONE (16:03)
[2019-04-24] MEDS ORDERED: FAMOTIDINE 20 MG TABLET ONE (16:03)
[2019-04-24 16:08] LABS: ALBUMIN 4.3 g/dl (3.4-5.0); BILIRUBIN,TOTAL 0.4 mg/dL (0.2-1); BLOOD UREA NITROGEN 6.3 mg/dL (7-18); CALCIUM 8.9 mg/dL (8.5-10.1); CREATININE 0.8 mg/dL (0.55-1.3); POTASSIUM 3.9 mmol/L (3.5-5.1); TOT PROT 7.3 g/dl (6.4-8.2)
[2019-04-24] MEDS ORDERED: KETOROLAC TROMETHAMINE 15 MG/ML VIAL ONE (18:30)
[2019-04-24] MEDS ORDERED: KETOROLAC TROMETHAMINE 15 MG/ML VIAL IVPUSH ONE (18:30)
== END 2019-04-24 18:35 | disposition home or self-care (01) ==
LOC: JERFT 14:09
PROC: 3E033GC Introduction of Other Therapeutic Substance into Peripheral Vein, Percutaneous Approach (ICD-10-PCS; principal; 2019-04-24)
PROC: 3E0333Z Introduction of Anti-inflammatory into Peripheral Vein, Percutaneous Approach (ICD-10-PCS; 2019-04-24)
DX: R10.32 Left lower quadrant pain (principal); Z88.1 Allergy status to other antibiotic agents; Z88.8 Allergy status to other drugs, medicaments and biological substances
CPT/HCPCS: 36415; 76700-TC; 76830-TC; 80053; 81003; 84703; 85025; 87086; 99284-25

== ENCOUNTER 2020-07-27 19:34 | Emergency (ER) | payer OTHER ==
[2020-07-27 19:52] VITALS: BP 130/84; PULSE 65; TEMP 98.7; BMI 22.3
[2020-07-27] MEDS ORDERED: IBUPROFEN 600 MG TABLET (FP) PO ONE ×2 (20:04)
== END 2020-07-27 21:12 | disposition home or self-care (01) ==
LOC: JERFT 19:34 → JER 19:34 → JERFT 21:12
DX: S90.32XA Contusion of left foot, initial encounter (principal)
CPT/HCPCS: 73630-TC-LT; 99283-25

== ENCOUNTER 2021-04-20 15:43 | Emergency (ER) | payer OTHER ==
[2021-04-20 16:26] VITALS: BP 129/68; PULSE 78; TEMP 98.1; BMI 22.1
== END 2021-04-20 18:02 | disposition home or self-care (01) ==
LOC: JERFT 15:43
DX: G56.02 Carpal tunnel syndrome, left upper limb (principal); M54.10 Radiculopathy, site unspecified
CPT/HCPCS: 99283-25